=== PATIENT | female | born 1945 | race Hispanic/Latino ===

== ENCOUNTER → 2022-05-16 | Outpatient (CLI) | payer MEDICARE ==
[2022-05-16 12:36] LABS: ALBUMIN 3.6 g/dL (3.5-5.0); CREATININE 0.8 mg/dL (0.5-1.5); POTASSIUM 3.7 mmol/L (3.5-5.1); TOTAL PROTEIN, SERUM 7.3 g/dL (6.0-8.3)
== END | disposition home or self-care (01) ==
LOC: LAB 08:29
PROVIDERS: ATTEND Internal Medicine Cardiovascular Disease
DX: I71.9 Aortic aneurysm of unspecified site, without rupture (principal)
CPT/HCPCS: 36415; 80053

== ENCOUNTER → 2022-06-06 | Outpatient (CLI) | payer MEDICARE ==
[~2022-06-06] MED LIST: IOHEXOL 350 MG/ML 100ML INFUS..BTL IV ONE; IOHEXOL-350 50ML VIAL IV ONE
== END | disposition home or self-care (01) ==
LOC: RAH 08:37 → EDUNIT# 09:00
PROVIDERS: ATTEND Internal Medicine Cardiovascular Disease
DX: I71.9 Aortic aneurysm of unspecified site, without rupture (principal); I70.0 Atherosclerosis of aorta; I70.1 Atherosclerosis of renal artery
CPT/HCPCS: 75635; Q9967 ×2

== ENCOUNTER → 2022-07-27 | Outpatient (CLI) | payer MEDICARE ==
[2022-07-27 12:45] LABS: ALBUMIN 3.5 g/dL (3.5-5.0); CREATININE 0.8 mg/dL (0.5-1.5); TOTAL PROTEIN, SERUM 6.8 g/dL (6.0-8.3)
== END | disposition home or self-care (01) ==
LOC: LAB 10:14
PROVIDERS: ATTEND Internal Medicine Cardiovascular Disease
DX: I10 Essential (primary) hypertension (principal)
CPT/HCPCS: 36415; 80053

== ENCOUNTER → 2022-08-10 | Outpatient (CLI) | payer MEDICARE | END | disposition home or self-care (01) | LOC: RAH 10:18 | PROVIDERS: ATTEND Internal Medicine Cardiovascular Disease | DX: I71.21 Aneurysm of the ascending aorta, without rupture (principal) | CPT/HCPCS: 71275; Q9967 ==

== ENCOUNTER → 2023-02-12 | Outpatient (CLI) | payer MEDICARE ==
[2023-02-12 16:28] LABS: CREATININE 0.9 mg/dL (0.5-1.5); POTASSIUM 3.9 mmol/L (3.5-5.1)
== END | disposition home or self-care (01) ==
LOC: LAB 10:00
PROVIDERS: ATTEND Internal Medicine Cardiovascular Disease
DX: I71.9 Aortic aneurysm of unspecified site, without rupture (principal)
CPT/HCPCS: 36415; 80048

== ENCOUNTER → 2023-09-27 | Outpatient (CLI) | payer MEDICARE | END | disposition home or self-care (01) | LOC: SHCH 14:26 | PROVIDERS: ATTEND Internal Medicine Cardiovascular Disease | DX: Z01.810 Encounter for preprocedural cardiovascular examination (principal); I11.0 Hypertensive heart disease with heart failure; I50.22 Chronic systolic (congestive) heart failure; I71.20 Thoracic aortic aneurysm, without rupture, unspecified; E78.5 Hyperlipidemia, unspecified | CPT/HCPCS: 93306 ==

== ENCOUNTER → 2024-02-11 | Outpatient (CLI) | payer MEDICARE ==
[2024-02-11 16:31] LABS: CREATININE 0.9 mg/dL (0.5-1.0); POTASSIUM 3.9 mmol/L (3.5-5.1)
== END | disposition home or self-care (01) ==
LOC: LAB 11:20
PROVIDERS: ATTEND Internal Medicine Cardiovascular Disease
DX: I10 Essential (primary) hypertension (principal); E78.5 Hyperlipidemia, unspecified; I71.9 Aortic aneurysm of unspecified site, without rupture
CPT/HCPCS: 36415; 80048

== ENCOUNTER → 2024-02-14 | Outpatient (CLI) | payer MEDICARE ==
[~2024-02-14] MED LIST changes: -IOHEXOL 350 MG/ML 100ML INFUS..BTL IV ONE; -IOHEXOL-350 50ML VIAL IV ONE; +IOHEXOL-350 75 ML VIAL IV ONE
== END | disposition home or self-care (01) ==
LOC: RAH 08:43
PROVIDERS: ATTEND Internal Medicine Cardiovascular Disease
DX: I71.21 Aneurysm of the ascending aorta, without rupture (principal)
CPT/HCPCS: 71275; Q9967

== ENCOUNTER 2024-10-21 06:17 | Observation (INO) | payer MEDICARE ==
[2024-10-17 10:57] LABS: BASOPHILS # (AUTO) 0.04 K/uL (0.00-0.20); BASOPHILS % (AUTO) 0.5 % (0.0-5.0); EOSINOPHILS # (AUTO) 0.33 K/uL (0.00-0.70); EOSINOPHILS % (AUTO) 4.2 % (0.0-8.0); HEMATOCRIT 39.4 % (36-48); IMMATURE GRANULOCYTE ABSOLUTE 0.03 K/uL (0-1); LYMPHOCYTES # (AUTO) 2.3 K/uL (1.0-4.8); LYMPHOCYTES % (AUTO) 28.9 % (21.0-51.0); MEAN CORPUSCULAR VOLUME 93.8 fL (79-99); MONOCYTES # (AUTO) 0.7 K/uL (0.1-1.0); MONOCYTES % (AUTO) 8.9 % (3.0-13.0); NEUTROPHILS # (AUTO) 4.5 K/uL (1.8-7.7); NEUTROPHILS % (AUTO) 57.1 % (40.0-77.0); PLATELET COUNT (AUTO) 224 K/uL (130-400); RED CELL DISTRIBUTION WIDTH 12.5 % (11.0-15.5); WHITE BLOOD COUNT (AUTO) 7.8 K/uL (4.8-10.8)
[2024-10-17 10:58] LABS: APPEARANCE,URINE CLOUDY (CLEAR); BILIRUBIN,URINE NEGATIVE (NEGATIVE); COLOR,URINE LIGHT-YELLOW (YELLOW); GLUCOSE, URINE (UA) NEGATIVE (NEGATIVE); KETONES,URINE NEGATIVE (NEGATIVE); LEUKOCYTE ESTERASE ,URINE 250 Leu/uL (NEGATIVE); NITRATE,URINE NEGATIVE (NEGATIVE); OCCULT BLOOD,URINE SMALL (NEGATIVE); PH,URINE 5.5 (5.0-8.0); PROTEIN,URINE NEGATIVE (NEGATIVE); UROBILINOGEN,URINE 0.2 mg/dL (0.2-1.0)
--- NOTE | 2024-10-17 11:00 | NUR ---
PREOP YASMIN RT INSTRUCTED PT ON INCENTIVE SPIROMETRY. PT DEMONSTRATED UNDERSTANDING
[2024-10-17 11:05] VITALS: BP 137/93; PULSE 82; RESP 20; TEMP 97.4
[2024-10-17 11:06] LABS: ADD UA MICROSCOPIC YES
[2024-10-17 11:14] LABS: MUCUS,URINE RARE LPF (None Seen); SQUAMOUS EPITHELIAL CELL,UR FEW /HPF (0-2)
--- NOTE | 2024-10-17 15:33 | NUR ---
REPORT REPORTED UA TO DR MAK. OK TO PROCEED
[~2024-10-21] VITALS: Ht 157.5 cm; Wt 51.5 kg
[2024-10-21] VITALS (27 sets, daily range): BP systolic 128–172; BP diastolic 77–97; PULSE 62–99; RESP 12–18; TEMP 97.1–98.4
[2024-10-21] MEDS: ceFAZolin SODIUM 2 GM VIAL ONE (06:15)
[2024-10-21] MEDS: LACTATED RINGERS 1000ML 1,000 ML IV ONE (06:15)
[~2024-10-21 06:17] MED LIST changes: +ACET-2247 PO; +ASPI-1197 PO; +ATOR20TA65 PO; +CARV6.25 PO; -IOHEXOL-350 75 ML VIAL IV ONE; +SACU1TAB7 PO
[2024-10-21] MEDS ORDERED: VANCOMYCIN 500MG+NS 100ML 100 ML IV ONE (07:28)
[2024-10-21] MEDS ORDERED: ceFAZolin SODIUM 1 GM VIAL ONE (07:28)
[2024-10-21] MEDS: TRANEXAMIC ACID 1000MG/10ML ONE ×2 (08:10→11:10)
[2024-10-21] MEDS ORDERED: MIDAZOLAM HCL 1 MG/ML 2ML VIAL ONE (08:12)
[2024-10-21] MEDS ORDERED: SUCCINYLCHOLINE CHLORIDE 20 MG/ML 10 ML VIAL ONE (08:12)
[2024-10-21] MEDS ORDERED: proPOFol 10 MG/ML 20ML VIAL IV ONE (08:12)
[2024-10-21] MEDS ORDERED: LIDOCAINE PF 100MG/5ML (2%) SYRINGE 5ML ONE (08:12)
[2024-10-21] MEDS ORDERED: rocuRONium bROMide 10MG/1ML 5ML VL ONE (08:13)
[2024-10-21] MEDS ORDERED: FENTanyl CITRate PF 50 MCG/1 ML 2ML VIAL ONE (08:13)
[2024-10-21] MEDS: acetaMINOPHEN 100 ML ONE (08:17)
[2024-10-21] MEDS: ceFAZolin SODIUM 2 GM VIAL IVPB ONE (08:35)
[2024-10-21] MEDS ORDERED: phenylEPHRINE HCL 10 MG/ML 1ML VIAL IV ONE (09:59)
--- NOTE | 2024-10-21 10:18 | OP ---
Operative Note: DATE OF PROCEDURE: 10/21/24 SURGEON: KAREN MAK MD PBX WIRE CHIEF: [Albert Arshad CFA] ANESTHESIA: [General anesthesia plus regional block] ANESTHESIOLOGIST/GRANITE SANDBLASTER APPRENTICE: [Ion Perez CRNA] PREOPERATIVE DIAGNOSIS: [Left knee osteoarthritis] POSTOPERATIVE DIAGNOSIS: [Same] IMPLANTS: [Biomet vanguard. Femur size 62.5 left PS. Tibia size 71 fixed cruciate. Tibial liner size 71/70 5 x 16 PS. Patella size 31 x 9 asymmetric] PROCEDURE: [Left total knee arthroplasty] ESTIMATED BLOOD LOSS: [100 mL] INDICATIONS: [79-year-old female with history of pain to the left knee secondary to severe arthritis that has been treated conservatively without much improvement. The patient is being admitted for a left total knee arthroplasty. Procedure understood, risks, benefits and possible complications and the patient agreed signed the consent form.] DESCRIPTION OF PROCEDURE: [After adequate general anesthesia was achieved and regional block obtained the left lower extremity was prepped and draped in the usual manner previous placement of the tourniquet in the proximal thigh. The extremity was then elevated and exsanguinated with an Esmarch bandage and the tourniquet inflated to 300 mmHg, the Esmarch band been then removed. With the knee in flexion a longitudinal incision was then made in the anterior aspect through the skin followed by dissection of the subcutaneous tissue. A bone infusion needle was then inserted just medial to the tibial tuberosity into the metaphysis of the tibia and through this needle we injected a solution of normal saline 50 mL with 500 mg of vancomycin. After the injection was completed we proceeded to remove the needle from the bone. A paramedian approach was then made with the Bovie cautery cutting through the quadriceps tendon, medial patellar retinaculum and patellar tendon retinaculum. The retropatellar tendon fat was then excised and the soft tissue elements of the tibia were elevated subperiosteally and retractors were applied medially and laterally . The anterior and posterior cruciate ligaments were resected. With the use of a drill a starting hole was made in the distal femur entering the intramedullary canal and then after removal of the drill an intramedullary guide was inserted with a 5 degree valgus block that touched the distal femur and to this the distal femoral cutting guide was then applied anteriorly and was secured to the distal femur with the use of pins. The intramedullary guide was then removed and with the use of the oscillating saw we proceeded to resect the distal femur removing the fragments and the guide. The femoral sizer was then applied distally and drill holes were made removing the sizer and the 4-in-1 cutting block was then inserted and the anterior, posterior and chamfer cuts were made removing the fragments and the block. The posterior cruciate ligament retractor was then inserted posterior to the tibia and this was brought forward proceeding then to apply the external tibial alignment guide and secured the proximal cutting guide to the tibia with the use of pins. With the use of the oscillating saw the proximal cut to the tibia tibia was made. The bone fragment was removed and the trial tibia plate was chosen. At this point the menisci were removed sharply and with the use of the curved osteotome the posterior osteophytes of the femur were removed. The PS cutting guide was then inserted and the intercondylar cut was made removing the fragment and the guide. The trial components were then inserted at the femur and tibia with a trial tibial liner bringing the knee into extension noticing that the patient had a very stable knee in flexion, extension and with valgus and varus stress. The knee was maintained in extension and the patella was then addressed proceeding to measure its thickness and then with the use of the oscillating saw we removed 8 mm from the articular surface and restored the height with application of a trial component after 3 peg holes were made. The patellofemoral ligament was removed and then the patellofemoral tracking was checked noticing to be normal. At this moment all the components were removed, the tibia after the metaphyseal defect was created and while cement was being mixed on the back table we proceeded to irrigate the joint with antibiotic solution and then cover the entry to the femoral canal with a bone plug. Once the cement was ready we proceeded to apply it first to the tibia surface inserting the final component and then to the femoral surface and inserted the final component removing the excess cement and then applying a trial liner bringing the knee into extension for compression. Then we proceeded to irrigate the patella surface and dried it applying then bone cement and the final patellar component was inserted and was secured with application of a clamp. The joint was irrigated with a warm diluted Betadine solution while the cement dried followed by irrigation with antibiotic solution. The trial liner was removed as well as the patellar clamp and we proceeded then to irrigate the posterior aspect of the joint to remove all the remaining debris and the final tibial liner was inserted and locked against the tibia. The range of motion was checked and noticed to be adequate with full extension and flexion, no laxity in valgus or varus stress and with adequate patellofemoral tracking. The patient had no anterior or posterior drawer. After further irrigation, the tourniquet was then deflated and this was followed by hemostasis. The wound was then closed with approximation of the quadriceps tendon, patellar retinaculum and patellar tendon retinaculum with #1 Vicryl close stitches alternating with #1 Ethibond stitches, and closure of the subcutaneous tissue with 2-0 Monocryl inverted stitches and the skin was closed with 3-0 Monocryl subcuticularly. The wound was covered with a suction dressing followed by application of an Isaias bandage for compression and the drapes were then removed transferring the patient to the hospital bed and taken to recovery room for follow-up by anesthesia. There were no complications during the procedure.] KAREN MAK MD October 21, 2024 10:18
[2024-10-21] MEDS ORDERED: FERROUS FUMARATE 324 MG TABLET PO PRN (10:30)
[2024-10-21] MEDS ORDERED: PoTASSium chl 10% ELIXIR 20MEQ 20 MEQ/15 ML UDCUP PO PRN (10:30)
[2024-10-21] MEDS ORDERED: TEMAZepam 15 MG CAPSULE PO PRN (10:30)
[2024-10-21] MEDS ORDERED: traMADol HCL 50 MG TABLET PO PRN (10:30)
[2024-10-21] MEDS: 0.9%NACL 1000ML 1,000 ML IV SCH (10:30)
[2024-10-21] MEDS ORDERED: DiphenhydrAMINE HCL 50 MG/ML VIAL IVP PRN (10:30)
[2024-10-21] MEDS ORDERED: PoTASSium chloRIDE 20MEQ/100ML 100 ML IV PRN (10:30)
[2024-10-21] MEDS ORDERED: ondanSETRON 4MG INJ IVP PRN (10:30)
[2024-10-21] MEDS ORDERED: GLYCOPYRROLATE 0.2 MG/ML 5 ML VIAL ONE (10:33)
[2024-10-21] MEDS ORDERED: NEOSTIGMINE METHYLSULFATE 1MG/ML IV ONE (10:34)
[2024-10-21] MEDS: MEPERIDINE-PF 50 MG/ML SYG ONE (11:11)
[2024-10-21] MEDS: INSULIN humuLIN R 100 UNIT/ML 3ML SQ SCH (11:30)
[2024-10-21] MEDS: OXYcodONE HCL 5 MG TAB PO PRN ×2 (12:29→17:03)
--- NOTE | 2024-10-21 14:15 | NUR ---
ORTHO COORDINATOR: TEACHING REGARDING DVT AND PNEUMONIA PREVENTION. PAIN EXPECTATIONS AND PAIN MANAGEMENT. PATIENT IN BED. NO HOSPITAL POULTRY PINNER AVAILABLE. [place] DRESSING INTACT, LIGHT FLASHING GREEN. B SCD SLEEVES IN PLACE AND FUNCTIONING. NO INCENTIVE SPIROMETER AT BEDSIDE. 1420 PRIMARY NURSE AT BEDSIDE. PATIENT CONCERNED REGARDING PAIN MANAGEMENT. PATIENT CURRENTLY FEELS MUSCLE PAIN ON THIGH, NO PAIN TO INCISION. REASSURED PATIENT THIS WAS NORMAL THE MUSCLES WERE MANIPULATED DURING SURGERY. REVIEWED THAT TYLENOL WAS SCHEDULED, RATIONALE PROVIDED. PATIENT ARRIVED AT BEDSIDE. REVIEWED NUMERIC PAIN SCALE. PATIENT ENCOURAGED TO SET AN ALARM EVERY FOUR HOURS AND PERFORM SELF PAIN ASSESSMENT, ASSIGN A NUMERIC VALUE WITH THE TYPE OF PAIN AND CALL TO NURSE SO APPROPRIATE MEDICATION CAN BE ADMINISTERED. PATIENT HAD RIGHT TOTAL KNEE IN [place]. DISCUSSED PLANS FOR AFTER CARE. PATIENT VOICES DESIRE TO RETURN HOME WITH HOME HEALTH. REVIEWED PROCESS, QUESTIONS ANSWERED. SET EXPECTATION FOR PATIENT TO SHOWER TOMORROW, RATIONALE PROVIDED. PATIENT AND VERBALIZED UNDERSTANDING. PT TO BEDSIDE. WILL CONTINUE EDUCATION TOMORROW.
[2024-10-21] MEDS: ceFAZolin SODIUM 2 GM VIAL IVPB SCH (16:47)
[2024-10-21] MEDS: acetaMINOPHEN 500 MG TABLET PO SCH (18:30)
[2024-10-21] MEDS: FAMOTIDINE 20MG TAB PO SCH (20:38)
[2024-10-21] MEDS: doCUSate SODIUM 100 MG CAP PO SCH (20:38)
[2024-10-22] VITALS (8 sets, daily range): BP systolic 118–143; BP diastolic 62–89; PULSE 88–96; RESP 16–21; TEMP 97.8–98.3; O2SAT 94–95
[2024-10-22] MEDS: ketOROlac 15MG/ML VIAL (15MG/ML) IV PRN (01:38)
[2024-10-22 03:51] LABS: HEMATOCRIT 31.9 % (36-48); MEAN CORPUSCULAR HEMOGLOBIN 30.4 pg (27.0-33.0); MEAN CORPUSCULAR HGB CONC 33.2 g/dL (32.0-36.0); MEAN CORPUSCULAR VOLUME 91.4 fL (79-99); RED BLOOD CELL COUNT(AUTO) 3.49 MIL/uL (4.00-5.50); RED CELL DISTRIBUTION WIDTH 12.4 % (11.0-15.5); WHITE BLOOD COUNT (AUTO) 13.1 K/uL (4.8-10.8)
[2024-10-22 04:01] LABS: CREATININE 0.9 mg/dL (0.5-1.0); POTASSIUM 3.8 mmol/L (3.5-5.1)
--- NOTE | 2024-10-22 08:35 | PN ---
Ortho postop day one. This morning upon entering the room the patient is exiting the bathroom ambulating with a walker. Stating she has adequate pain control. Stating she had a restful night. Vital signs have remained stable. She is afebrile. Laboratory results reviewed. Noted to have a drop in hemoglobin and hematocrit as expected after TKA. Patient currently is asymptomatic and we will address per protocol as necessary. Operative findings discussed with the patient. Voiding on her own without difficulty. The Isaias bandage has been removed from the operative extremity the distal aspect of the PICCO dressing has a patch of blood otherwise remainder of the dressing is intact. Gastrocnemius a soft nontender negative Homans. SCD stockings are currently on but not connected as she is sitting at the bedside in a chair. She has alternating extension and flexion using a footstool. Ice is present to operative extremity. She did ambulate yesterday with physical therapy about 20 ft and again ambulating with the confines of her room. Pending further physical therapy this morning. Anticipated discharge goal is home health/PT. Assessment: Status post left total knee arthroplasty. Acute postoperative blood loss anemia. Plan: Continue Dr. Copeland was TKA protocol and discharge planning. Acute postoperative blood loss anemia addressed with protocol as necessary Vitals/Labs Vital Signs Date Time Temp Pulse Resp B/P (MAP) Pulse Ox O2 Delivery O2 Flow Rate FiO2 10/22/24 08:00 98.1 96 16 124/86 94 Room Air 10/21/24 21:50 0 21 Laboratory Tests 10/22/24 03:12 Medications Current Medications Cefazolin Sodium 2 gm STK-MED ONCE .ROUTE; Start 10/21/24 at 06:15; Stop 10/21/24 at 06:15; Status DC Lactated Ringer's 1,000 ml @ As Directed STK-MED ONCE IV; Start 10/21/24 at 06:15; Stop 10/21/24 at 06:15; Status DC Cefazolin Sodium 1 gm STK-MED ONCE .ROUTE; Start 10/21/24 at 07:28; Stop 10/21/24 at 07:28; Status DC Vancomycin HCl 100 ml @ As Directed STK-MED ONCE IV; Start 10/21/24 at 07:28; Stop 10/21/24 at 07:28; Status DC Tranexamic Acid 1,000 mg STK-MED ONCE .ROUTE; Start 10/21/24 at 08:10; Stop 10/21/24 at 08:10; Status DC Lidocaine HCl 100 mg STK-MED ONCE .ROUTE; Start 10/21/24 at 08:12; Stop 10/21/24 at 08:12; Status DC Succinylcholine Chloride 200 mg STK-MED ONCE .ROUTE; Start 10/21/24 at 08:12; Stop 10/21/24 at 08:13; Status DC Propofol 200 mg STK-MED ONCE IV; Start 10/21/24 at 08:12; Stop 10/21/24 at 08:13; Status DC Midazolam HCl 2 mg STK-MED ONCE .ROUTE; Start 10/21/24 at 08:12; Stop 10/21/24 at 08:13; Status DC Rocuronium Zalma 50 mg STK-MED ONCE .ROUTE; Start 10/21/24 at 08:13; Stop 10/21/24 at 08:13; Status DC Fentanyl Citrate 100 mcg STK-MED ONCE .ROUTE; Start 10/21/24 at 08:13; Stop 10/21/24 at 08:13; Status DC Acetaminophen 100 ml @ As Directed STK-MED ONCE .ROUTE; Start 10/21/24 at 08:17; Stop 10/21/24 at 08:17; Status DC Cefazolin Sodium 2 gm STK-MED ONCE IVPB Last administered on 10/21/24at 08:35; Start 10/21/24 at 08:35; Stop 10/21/24 at 09:25; Status DC Tranexamic Acid 1,000 mg STK-MED ONCE IV Last administered on 10/21/24at 08:40; Start 10/21/24 at 08:40; Stop 10/21/24 at 09:25; Status DC Phenylephrine HCl 10 mg STK-MED ONCE IV; Start 10/21/24 at 09:59; Stop 10/21/24 at 09:59; Status DC Sodium Chloride 1,000 ml @ 100 mls/hr Q10H IV; Start 10/21/24 at 10:30; Stop 10/22/24 at 10:29 Polyethylene Glycol 17 gm DAILY PO; Start 10/22/24 at 09:00; Stop 11/21/24 at 08:59 Bisacodyl 10 mg DAILY PRN RC; Start 10/24/24 at 10:30; Stop 11/23/24 at 10:29 Ketorolac Tromethamine 15 mg Q6H PRN IV Last administered on 10/22/24at 01:38; Start 10/21/24 at 10:30; Stop 10/26/24 at 10:29 Famotidine 20 mg Q24H PO Last administered on 10/21/24at 20:38; Start 10/21/24 at 21:00; Stop 11/20/24 at 20:59 Ferrous Fumarate 324 mg DAILY PRN PO; Start 10/21/24 at 10:30; Stop 11/20/24 at 10:29 Temazepam 15 mg HS PRN PO; Start 10/21/24 at 10:30; Stop 11/20/24 at 10:29 Ondansetron HCl 4 mg Q6H PRN IVP; Start 10/21/24 at 10:30; Stop 11/20/24 at 10:29 Calcium Carbonate 500 mg Q12H PRN PO; Start 10/21/24 at 10:30; Stop 11/20/24 at 10:29 Diphenhydramine HCl 25 mg Q6H PRN IVP; Start 10/21/24 at 10:30; Stop 11/20/24 at 10:29 Insulin Human Regular INSULIN SLIDING SCAL... ACHS SQ Last administered on 10/21/24at 20:41; Start 10/21/24 at 11:30; Stop 11/20/24 at 11:29 Cefazolin Sodium 2 gm Q8H IVPB Last administered on 10/22/24at 01:18; Start 10/21/24 at 16:30; Stop 10/22/24 at 00:31; Status DC Docusate Sodium 100 mg BID PO Last administered on 10/21/24at 20:38; Start 10/21/24 at 21:00; Stop 11/20/24 at 20:59 Potassium Chloride 100 ml @ 100 mls/hr AD PRN IV; Start 10/21/24 at 10:30; Stop 11/20/24 at 10:29 Potassium Chloride 20 meq AD PRN PO; Start 10/21/24 at 10:30; Stop 11/20/24 at 10:29 Potassium Chloride 20 meq AD PRN PO; Start 10/21/24 at 10:30; Stop 11/20/24 at 10:29 Oxycodone HCl 5 mg Q4H PRN PO Last administered on 10/21/24at 12:29; Start 10/21/24 at 10:30; Stop 10/28/24 at 10:29 Oxycodone HCl 10 mg Q4H PRN PO Last administered on 10/21/24at 22:49; Start 10/21/24 at 10:30; Stop 10/28/24 at 10:29 Tramadol HCl 50 mg Q6H PRN PO; Start 10/21/24 at 10:30; Stop 10/26/24 at 10:29 Acetaminophen 1,000 mg Q8H PO Last administered on 10/21/24at 18:56; Start 10/21/24 at 10:30; Stop 11/20/24 at 10:29 Apixaban 2.5 mg BID PO; Start 10/22/24 at 09:00; Stop 11/21/24 at 08:59 Glycopyrrolate 1 mg STK-MED ONCE .ROUTE; Start 10/21/24 at 10:33; Stop 10/21/24 at 10:34; Status DC Neostigmine Methylsulfate 10 mg STK-MED ONCE IV; Start 10/21/24 at 10:34; Stop 10/21/24 at 10:34; Status DC Meperidine HCl 50 mg STK-MED ONCE .ROUTE Last administered on 10/21/24at 11:11; Start 10/21/24 at 11:00; Stop 10/21/24 at 11:01; Status DC Tranexamic Acid 1,000 mg STK-MED ONCE .ROUTE Last administered on 10/21/24at 11:10; Start 10/21/24 at 11:01; Stop 10/21/24 at 11:01; Status DC Atorvastatin Calcium 20 mg HS PO; Start 10/22/24 at 21:00; Stop 11/21/24 at 20:59 Carvedilol 6.25 mg BID PO; Start 10/22/24 at 09:00; Stop 11/21/24 at 08:59 Sacubitril/ Valsartan 1 each BID PO; Start 10/22/24 at 09:00; Stop 11/21/24 at 08:59 GODFREY DAY NP October 22, 2024 08:35
[2024-10-22] MEDS: carVEDIlol 6.25 MG TABLET PO SCH (09:00)
[2024-10-22] MEDS: SACUBITRIL/VALSARTAN 1 EACH TABLET PO SCH (09:00)
--- NOTE | 2024-10-22 09:30 | NUR ---
MEDICATIONS PATIENT TOOK HOME MEDICATIONS ENTRESTO AND CARVIDELOL EARLY THIS AM. PATIENT UNDERSTOOD THAT IT WAS OK TO HAVE MEDICATIONS AT BEDSIDE AND TAKE THEM. INFORMED PATIENT THAT THE MD HAS RESTARTED MEDICATIONS AND ADVISED NOT TO TAKE FROM OWN STASH. EDUCATION PROVIDED AND ALL QUESTIONS ANSWERED.
[2024-10-22] MEDS: PoTASSium chloRIDE 20MEQ ER 20 MEQ ERTAB PO PRN (09:47)
[2024-10-22] MEDS: CALCIUM CARB 500MG PO PRN (09:47)
[2024-10-22] MEDS: APIXaban 2.5 MG TABLET PO SCH (09:48)
[2024-10-22] MEDS: polyETHYLene GLYCol 3350 17 GM POWD.PACK PO SCH (09:48)
--- NOTE | 2024-10-22 10:45 | NUR ---
ORTHO COORDINATOR: PHYSICAL THERAPY AT BEDSIDE. PATIENT UP TO CHAIR, PERFORMING EXERCISES WITH PHYSICAL THERAPY. AT BEDSIDE. INCENTIVE SPIROMETER ON BEDSIDE TABLE.
--- NOTE | 2024-10-22 14:45 | NUR ---
ORTHO COORDINATOR: REINFORCED TEACHING REGARDING DVT AND PNEUMONIA PREVENTION. PAIN EXPECTATIONS AND PAIN MANAGEMENT. PATIENT IN BED, AT BEDSIDE. ASSISTED WITH TRANSLATION NO HOSPITAL CARD FILER AVAILABLE. B SCD SLEEVES IN PLACE AND FUNCTIONING. INCENTIVE SPIROMETER ON BEDSIDE TRAY. PAIN MANAGEMENT REVIEWED. PATIENT CURRENTLY RATES PAIN 10/10. INSTRUCTED PATIENT TO CALL FOR NURSE. CALL WATTS ACTIVATED. REINFORCED TEACHING REGARDING PAIN MANAGEMENT SELF EVALUATION EVERY FOUR HOURS AND NUMERIC SCALE. PATIENT FINDS IT DIFFICULT TO ASSIGN NUMERIC RATING, PROVIDED EXAMPLES. PATIENT REMINDED SHE MUST CALL AND REQUEST PAIN MEDICATION. PATIENT RETURN DEMONSTRATED PROPER FOOT FLEXION/EXTENSION EXERCISES. PATIENT RETURN DEMONSTRATED IMPROPER TECHNIQUE FOR USE OF INCENTIVE SPIROMETER. REDIRECTED AND PROVIDED FREQUENCY OF USE. PATIENT VERBALIZED UNDERSTANDING. PATIENT ENCOURAGED TO SHOWER TODAY, RATIONALE PROVIDED. PATIENT STATES HER PAIN INCREASES WHEN SHE SITS UP IN CHAIR. EXPLAINED SHE COULD SHORTEN THE TIMES UP TO CHAIR IF SHE PERFORMS MORE OFTEN THROUGHOUT THE DAY. PATIENT AND AGREED. PATIENT STATES SHE HAS A STATIONARY BIKE AT HOME. INSTRUCTED NOT TO USE UNTIL CLEARED BY PHYSICIAN. PATIENT AND VERBALIZED UNDERSTANDING. XRAY TECH ARRIVED AT BEDSIDE, ADVISED PAIN 10/10. 1500 CALL TO RESPIRATORY THERAPY. ADVISED PATIENT MIGHT NEED ADDITIONAL TEACHING ON INCENTIVE SPIROMETER. VALENTIN ACKNOWLEDGED COMMUNICATION. REPORT TO PRIMARY NURSE REGARDING INCENTIVE SPIROMETER REDIRECTING NEEDED AND PAIN MANAGEMENT REVIEWED. PRIMARY NURSE ACKNOWLEDGED COMMUNICATION. Addendum: 10/22/24 at 1655 by MAYRA BARROW RN RN RICO DRESSING INTACT AND FUNCTIONING, LIGHT FLASHING GREEN.
[2024-10-22] MEDS ORDERED: acetaMINOPHEN 325 MG TAB PO PRN (16:30)
--- NOTE | 2024-10-22 16:52 | NUR ---
DC PLAN VISITED WITH PATIENT. PATIENT LIVES WITH SPOUSE. INDEPENDENT ABLE TO PERFORM ADL'S. PATIENT HAS NO SERVICE. FEELS SAFE TO RETURN HOME. TOMAS SIGNED FOR [facility]. ALREADY HAS A WALKER AT HOME. Addendum: 10/22/24 at 1654 by DIANA BANDA RN CM Amended: Links added.
--- NOTE | 2024-10-22 16:56 | NUR ---
DC PLAN VISITED WITH PATIENT. TOMAS SIGNED FOR [facility]. PACKET MADE AND SENT. PATIENT ACCEPTED LET MD AND NURSE KNOW. NUMBER TO CALL REPORT GIVEN TO NURSE. Addendum: 10/22/24 at 1658 by DIANA BANDA RN CM Amended: Links added.
[2024-10-22] MEDS: atorVAStatin 20 MG TABLET PO SCH (20:56)
[2024-10-22] MEDS: ASPIRIN 81MG CHEW TAB PO SCH (20:56)
[2024-10-23 03:42] VITALS: BP 131/66; PULSE 100; RESP 17; TEMP 98.7
[2024-10-23 08:00] VITALS: BP 138/77; PULSE 89; RESP 19; TEMP 98.9
[2024-10-23 08:10] VITALS: O2SAT 93
[2024-10-23] MEDS ORDERED: HYDR-4060 PO (08:25)
[2024-10-23] MEDS ORDERED: APIX2.5T PO (08:25)
--- NOTE | 2024-10-23 08:28 | DS ---
DISCHARGE SUMMARY [Date of admission: 10/21/2024 Date of discharge: 10/23/2024 Final diagnosis: Left Knee osteoarthritis Surgical procedures: Left total Knee arthroplasty on 10/21/2024 Summary of History and Physical: The patient is a 79 year-old female with history of severe arthrosis to the left knee that has been present for several years and has been treated conservatively with no longer adequate response to treatment. The patient is being admitted for total knee arthroplasty. Previous medical history: Obesity, hypertension, hypercholesterolemia, diabetes mellitus Previous surgical history: Right total knee arthroplasty Family history: Not relevant Social history: Negative for use of tobacco or alcohol. Allergies: NKDA. Review of system: Negative on admission Hospital course: The patient was admitted and taken to the operating room for a left total knee arthroplasty, procedure that went uneventful. Postoperatively the patient remained hemodynamically stable and afebrile. The patient received antibiotic and anticoagulation prophylaxis as per protocol. The patient was evaluated by physical therapy and started rehabilitation treatment with ambulation with the use of walker, weightbearing as tolerated, range of motion exercises and bed transfers. The patient was also evaluated by case management and arrangements were made for discharge. The patient tolerated diet well. On postop day #2 all the arrangements were completed. The dressing was changed and the wound was noted to be stable and the patient was dismissed. Condition on discharge: Good Disposition: The patient will be dismissed home with home health. Follow-up will be done at the office in 3 weeks. The patient is to continue with physical therapy and rehabilitation at home and be ambulatory with the use of a walker, weightbearing as tolerated. Continue taking pain medication as instructed as well as anticoagulation prophylaxis. Continue with home medications also as instructed and continue with pre admission diet.] KAREN MAK MD ] KAREN MAK MD October 23, 2024 08:28
--- NOTE | 2024-10-23 08:30 | NUR ---
PERIPHERAL IV DC'D PERIPHERAL IV NO LONGER INTACT UPON ASSESSMENT OF PATIENT. PATIENT UNSURE WHEN IV WAS OUT. CATHETER TIP INTACT. LINE DISCONTINUED.
[2024-10-23 12:00] VITALS: BP 128/77; PULSE 81; RESP 20; TEMP 97.4
--- NOTE | 2024-10-23 13:15 | NUR ---
DRESSING CHANGE RICO DRESSING CHANGED. DRESSING REMOVED, CLEANSED SITE WITH IODINE. SUTURES PLACED TO DISTAL AND MEDIAL SITES. DRESSING PLACED WITHOUT COMPLICATIONS AND WORKING WELL. PATIENT TOLERATED WELL.
--- NOTE | 2024-10-23 13:45 | NUR ---
PATIENT REPORT S/W THERESA (COMPUTER GRAPHIC ARTIST) AT [facility]. REPORT GIVEN ALL QUESTIONS ANSWERED. PATIENTS ADDRESS CONFIRMED. [id number] [place] [address]
--- NOTE | 2024-10-23 13:51 | NUR ---
PATIENT DISCHARGED. DISCHARGE INSTRUCTIONS GIVEN. PRESCRIPTIONS SENT TO PHARMACY. PATIENT AWARE TO F/U WITH DR. MAK 11/10 AT 1 PM. ALL QUESTIONS ANSWERED.
[2024-10-24] MEDS ORDERED: BisaCODYL 10 MG SUPP.RECT RC PRN (10:30)
== END 2024-10-23 14:00 | disposition home or self-care (01) ==
LOC: DAH 06:17 → DAHIP 06:18 → 4DH 12:00
PROVIDERS: ADMIT Orthopaedic Surgery; ATTEND Orthopaedic Surgery
DX: M17.12 Unilateral primary osteoarthritis, left knee (principal); D62 Acute posthemorrhagic anemia; I10 Essential (primary) hypertension; E78.00 Pure hypercholesterolemia, unspecified; E11.9 Type 2 diabetes mellitus without complications; E66.9 Obesity, unspecified; Z68.20 Body mass index [BMI] 20.0-20.9, adult; Z79.899 Other long term (current) drug therapy
CPT/HCPCS: 85025; 87086; 81001; 36415 ×2; 87641; 27447; 96365; 96366 ×2; 82948 ×7; 88311; 88304; 97161; 97116 ×4; 97530 ×6; 96376; 96375; 80048; 85027; J1815; G0378 ×47; A4223 ×2; A4663; J7120 ×2; A4649 ×3; J3010; J0690 ×5; J3490 ×5; J0330; J2003; J2250; J2704; J2710; J2175; J2371; J3370; A9272; A4930 ×2; C1713; C1776; A5120; A4215; A4213; A4222; A4221; A4216; J1885 ×2

== ENCOUNTER → 2025-03-02 | Outpatient (CLI) | payer MEDICARE ==
[~2025-03-02] MED LIST changes: -ACET-2247 PO; +APIX2.5T PO; -ASPI-1197 PO; +HYDR-4060 PO; +IOHEXOL-350 75 ML VIAL IV ONE
--- NOTE | 2025-03-03 11:35 | HMCIMG ---
EXAM: CTA Chest with and without Intravenous Contrast for Aortic Dissection CLINICAL HISTORY: Patient evaluated for suspected thoracic aortic dissection. TECHNIQUE: Axial CTA images of the chest obtained with and without intravenous contrast using an aortic dissection protocol. MIP reconstructed images were created and reviewed. CONTRAST: 75 mL Omnipaque [id number]. COMPARISON: 02/14/2024. FINDINGS: AORTA No dissection or rupture of the thoracic aorta. Ectasia of the ascending thoracic aorta measures up to 4.3 cm and remains stable compared to prior study. Tortuosity of the descending thoracic aorta with focal atheromatous wall calcifications of the aorta and coronary arteries. PULMONARY ARTERIES Exam optimized for aortic evaluation. No obvious central or segmental pulmonary embolism. LUNGS Mild bibasilar dependent atelectasis. No focal consolidation or pulmonary mass. PLEURAL SPACES No pleural effusion or pneumothorax. HEART Mild cardiomegaly. No significant pericardial effusion. LYMPH NODES No mediastinal or hilar lymphadenopathy. BONES Deformed right eighth and left fifth and sixth ribs, likely post-traumatic sequelae. Multilevel moderate spondylosis with dextroscoliosis. UPPER ABDOMEN Diffuse hepatic steatosis. Few left renal cortical cysts. Elevated right hemidiaphragm. IMPRESSION: Ectasia of the ascending aorta, measuring 4.3 cm. No thoracic aortic dissection. No pulmonary embolus. No suspicious pulmonary nodules. No pulmonary infiltrates or pleural effusions. Mild bibasilar dependent atelectasis. Stable mild cardiomegaly. /[place]
== END | disposition home or self-care (01) ==
LOC: RAH 09:22
PROVIDERS: ATTEND Internal Medicine Cardiovascular Disease
DX: I77.810 Thoracic aortic ectasia (principal); J98.11 Atelectasis; I51.7 Cardiomegaly; K76.0 Fatty (change of) liver, not elsewhere classified; M95.4 Acquired deformity of chest and rib; M47.814 Spondylosis without myelopathy or radiculopathy, thoracic region; M41.84 Other forms of scoliosis, thoracic region; N28.1 Cyst of kidney, acquired
CPT/HCPCS: 71275; Q9967